=== PATIENT | female | born 1985 | race Caucasian/White ===

== ENCOUNTER 2016-06-26 16:12 | Emergency (ER) | payer MEDICAID ==
[~2016-06-26] VITALS: Ht 165.1 cm; Wt 60.0 kg
[~2016-06-26 16:12] MED LIST: PREN0.01 PO; SENN1TAB11 PO; TRAM50 PO
[2016-06-26 16:14] VITALS: BP 174/112; PULSE 108; RESP 24; TEMP 98; O2SAT 94
[2016-06-26 16:30] VITALS: BP 174/110; PULSE 88; RESP 20; O2SAT 98
[2016-06-26 16:34] VITALS: BP 174/110; PULSE 88; RESP 20; TEMP 98; O2SAT 98
[2016-06-26] MEDS ORDERED: BACT800T5 PO (16:37)
[2016-06-26] MEDS ORDERED: MUPI2%T TOPICAL (16:37)
[2016-06-26] MEDS ORDERED: SULFAMETHOXAZOLE-TRIMETHOPRIM DS 800-160 MG TAB PO ONE (16:45)
--- NOTE | 2016-06-26 16:46 | PD ---
HPI Chief Complaint: Medical Clearance Time Seen by Provider: 16:38 Travel History International Travel<30 days: No Contact w/Intl Traveler<30days: No Traveled to known affect area: No History of Present Illness HPI 30-year-old female coming in with complaints of sores on her hands, forearm, and face which she states started approximately 3 days ago. She is concerned about possible scabies. Patient denies fever, chills, or drainage from the wounds. She has no significant pain. Patient denies history of eczema or psoriasis in the past. Patient denies IV drug use. Patient is concerned that her son may have contracted scabies and given it to her. Patient denies history of cellulitis in the past. Patient denies history of MRSA. Patient has no known drug allergies. PFSH Past Medical History Medical History: Denies Significant Hx Tetanus Vaccination: Unknown Influenza Vaccination: No ?: Not Past Surgical History Surgical History: No Previous Surgery Social History Alcohol Use: No Tobacco Use: No Substance Use: No Allergies-Medications (Allergen,Severity, Reaction): Coded Allergies: No Known Allergies (Unverified , 06/26/16) Reported Meds & Prescriptions Reported Meds & Active Scripts Active Bactroban Topical (Mupirocin) 2 % Cream 1 Applic TOPICAL BID Bactrim DS (Sulfamethoxazole-Trimethoprim) 800-160 Mg Tab 1 Tab PO BID Review of Systems ROS Limitations: Poor Historian Except as stated in HPI: all other systems reviewed are Neg General / Constitutional: No: Fever Eyes: No: Visual changes HENT: No: Headaches Cardiovascular: No: Chest Pain or Discomfort Respiratory: No: Shortness of Breath Gastrointestinal: No: Abdominal Pain Genitourinary: No: Dysuria Musculoskeletal: No: Pain Skin: No Rash Neurologic: No: Weakness Psychiatric: No: Depression Endocrine: No: Polydipsia Hematologic/Lymphatic: No: Easy Bruising Physical Exam Narrative GENERAL: Patient is very anxious and histrionic. She appears in mild to moderate distress. SKIN: Warm and dry. Patient has multiple raised dry excoriated lesions to the or head, nose, chin, and cheeks as well as both forearms, and a couple on the lower legs. These appear old, and not consistent with scabies or other skin might. There is no obvious signs of significant cellulitis or abscess. The largest lesion is on the left proximal dorsal forearm. There is no significant lymphangitis. There is no lymphadenopathy. HEAD: Atraumatic. Normocephalic. EYES: Pupils equal and round. No scleral icterus. No injection or drainage. ENT: No nasal bleeding or discharge. Mucous membranes pink and dry. Pharynx is normal. NECK: Trachea midline. No JVD. CARDIOVASCULAR: Regular rate and rhythm. RESPIRATORY: No accessory muscle use. Clear to auscultation. Breath sounds equal bilaterally. GASTROINTESTINAL: Abdomen soft, non-tender, nondistended. Hepatic and splenic margins not palpable. MUSCULOSKELETAL: Extremities without clubbing, cyanosis, or edema. No obvious deformities. NEUROLOGICAL: Awake and alert. No obvious cranial nerve deficits. Motor grossly within normal limits. Five out of 5 muscle strength in the arms and legs. Normal speech. PSYCHIATRIC: Appropriate mood and affect; insight and judgment normal. Data Data Last Documented VS Vital Signs Date Time Temp Pulse Resp B/P Pulse Ox O2 Delivery O2 Flow Rate FiO2 06/26/16 16:30 88 20 174/110 98 06/26/16 16:14 98.0 Room Air Orders Sulfamet-Trimeth Ds 800-160 Mg (Bactrim (06/26/16 16:45) Wound Culture And Gram Stain (06/26/16 16:46) MDM Medical Decision Making Medical Screen Exam Complete: Yes Emergency Medical Condition: Yes Differential Diagnosis Possible deep fat cook fry syndrome. Cellulitis. MRSA. Narrative Course Patient is medically stable at time of exam. I do not feel the patient has a skin infestation. Culture was obtained from the right elbow and sent to the lab. Patient will be treated on an outpatient basis with Bactroban ointment to all lesions twice daily after washing with soap and water. Patient also placed on Bactrim DS twice a day 7 days. Patient follow-up with her local primary care physician or return to emergency department if symptoms worsen. Diagnosis Primary Impression: Cellulitis Qualified Code: L03.90 - Cellulitis, unspecified cellulitis site Patient Instructions: Cellulitis (DC), General Instructions Scripts Mupirocin Topical (Bactroban Topical)2 % Cream1 Applic TOPICAL BID #1 TUBE Prov:James Garcia MD 06/26/16 Sulfamethoxazole-Trimethoprim (Bactrim DS)800-160 Mg Tab1 Tab PO BID #14 TAB Prov:James Garcia MD 06/26/16 Disposition: 01 DISCHARGE HOME Condition: Stable Angus Martínez Jun 26, 2016 16:46
[2016-06-26] MEDS ORDERED: PERM5CRE TOPICAL (23:14)
== END 2016-06-26 17:07 | disposition home or self-care (01) ==
LOC: NEPC 16:12
DX: L03.211 Cellulitis of face (principal); L03.114 Cellulitis of left upper limb; L03.113 Cellulitis of right upper limb; B95.61 Methicillin susceptible Staphylococcus aureus infection as the cause of diseases classified elsewhere
CPT/HCPCS: 86403; 87070; 87186; 87205; 99283

== ENCOUNTER 2016-06-26 22:54 | Emergency (ER) | payer MEDICAID ==
[~2016-06-26] VITALS: Ht 160 cm; Wt 55.0 kg
[~2016-06-26 22:54] MED LIST changes: +BACT800T5 PO; +MUPI2%T TOPICAL
[2016-06-26 22:58] VITALS: BP 136/90; PULSE 97; RESP 16; TEMP 97.6; O2SAT 95
[2016-06-26] MEDS ORDERED: PERM5CRE TOPICAL (23:14)
[2016-06-26] MEDS ORDERED: diphenhydrAMINE HCL 50 MG/ML VIAL IM ONE (23:15)
--- NOTE | 2016-06-26 23:47 | PD ---
HPI Chief Complaint: Skin Problem Time Seen by Provider: 23:10 Travel History International Travel<30 days: No Contact w/Intl Traveler<30days: No Traveled to known affect area: No History of Present Illness HPI This is a 30-year-old female who presents for reevaluation of her rash. She was seen here earlier today for evaluation of rash which is been ongoing for the past 4 days. The rash is pruritic, somewhat painful. She has clearly been scratching at the rash and she has secondary cellulitic infection. She was diagnosed with cellulitis earlier today and prescribed Bactrim, Bactroban cream. A wound culture was performed. She is concerned that she may have some type of parasitic infection or scabies. She reports that her son has a similar rash. She is quite tearful, anxious at this time. Her has arrived and provides additional history. He reports that she has been relapsing an IV Dilaudid over the past few months and she is exhibiting paranoia and delusions in regards to the rash. She has not been suicidal or homicidal. He was requesting a psychiatric evaluation. No other complaints at this time. [facility] Social History Alcohol Use: No Tobacco Use: No Substance Use: No Allergies-Medications (Allergen,Severity, Reaction): Coded Allergies: No Known Allergies (Unverified , 06/26/16) Reported Meds & Prescriptions Reported Meds & Active Scripts Active Permethrin Topical (Permethrin) 5% Cream 1 Applic TOPICAL ONCE Bactroban Topical (Mupirocin) 2 % Cream 1 Applic TOPICAL BID Bactrim DS (Sulfamethoxazole-Trimethoprim) 800-160 Mg Tab 1 Tab PO BID Review of Systems Except as stated in HPI: all other systems reviewed are Neg Physical Exam Narrative GENERAL: Well-developed well-nourished female who is anxious, tearful, jittery. SKIN: Warm and dry. The patient has excoriated papular lesions on the extremities primarily. There are mild erythematous changes surrounding some of them. There is no drainage or fluctuance. No vesicles, no pustules, no annular lesions, no fluctuance or induration. HEAD: Atraumatic. Normocephalic. EYES: Pupils equal and round. No scleral icterus. No injection or drainage. ENT: No nasal bleeding or discharge. Mucous membranes pink and moist. NECK: Trachea midline. No JVD. CARDIOVASCULAR: Regular rate and rhythm. No murmur appreciated. RESPIRATORY: No accessory muscle use. Clear to auscultation. Breath sounds equal bilaterally. GASTROINTESTINAL: Abdomen soft, non-tender, nondistended. MUSCULOSKELETAL: No obvious deformities. NEUROLOGICAL: Awake and alert. No obvious cranial nerve deficits. Motor grossly within normal limits. Normal speech. PSYCHIATRIC: Anxious, tearful Data Data Last Documented VS Vital Signs Date Time Temp Pulse Resp B/P Pulse Ox O2 Delivery O2 Flow Rate FiO2 06/26/16 22:58 97.6 97 16 136/90 95 Orders Diphenhydramine Inj (Benadryl Inj) (06/26/16 23:15) MDM Medical Decision Making Medical Screen Exam Complete: Yes Emergency Medical Condition: Yes Medical Record Reviewed: Yes Differential Diagnosis Cellulitis, psychogenic pruritus, impetigo, substance-induced disorder, scabies , bites, bedbugs, viral exanthem Narrative Course The patient has a pruritic widespread rash over the past 4 days, unknown etiology, certainly will cover for scabies with permethrin cream. She does have secondary cellulitic infections running some of the wounds, mild. She is certainly not septic. I did discuss with the patient possibility of undergoing a psychiatric screening here however the patient is declining and she does not meet hubbard act criteria. She has been quite tearful and anxious. I did discuss with her the possibility of going to [facility] on a voluntary basis to undergo drug detoxification. She has done that in the past with some degree of success. She is agreeable with this plan. I also discussed with the who is agreeable to this plan. He understands to return here for any new or worsening symptoms. She is being given a dose of Benadryl here. Diagnosis Primary Impression: Cellulitis Qualified Code: L03.119 - Cellulitis of upper extremity, unspecified laterality Additional Impressions: Pruritic rash Substance-induced disorder Referrals: [facility] Additional Instructions: Use the Bactrim and Bactroban cream as previously prescribed. Avoid scratching. Take [id number] Benadryl every 6 hours for itching. Used the permethrin cream as prescribed. Repeat dosage in one week. As discussed follow-up with [facility] for drug detoxification. Return for any emergent medical conditions. Med/Other Pt SpecificInfo: Prescription(s) given Scripts Permethrin Topical 5% Cream1 Applic TOPICAL ONCE #1 TUBE Ref 1 Prov:CobianHui Devendra BRADY 06/26/16 Disposition: 01 DISCHARGE HOME Condition: Stable Ephraim Tang Jun 26, 2016 23:46
== END 2016-06-27 00:02 | disposition home or self-care (01) ==
LOC: NEPB 22:54
DX: L03.113 Cellulitis of right upper limb (principal); L03.114 Cellulitis of left upper limb; R21 Rash and other nonspecific skin eruption
CPT/HCPCS: 96372; 99282; J1200